=== PATIENT | female | born 1980 | race Caucasian/White ===

== ENCOUNTER 2020-03-19 14:38 | Outpatient (REF) | payer OTHER, SELFPAY | END 2020-03-19 14:39 | disposition home or self-care (01) | LOC: HO.LAB 14:38 | PROVIDERS: Visit Provider Internal Medicine | DX: Z20.822 Contact with and (suspected) exposure to COVID-19 (principal) | CPT/HCPCS: 36415; C9803; U0003 ==

== ENCOUNTER 2020-03-25 15:42 | Outpatient (REF) | payer OTHER, SELFPAY | END 2020-03-25 15:43 | disposition home or self-care (01) | LOC: HO.LAB 15:42 | PROVIDERS: Visit Provider Internal Medicine | DX: Z20.822 Contact with and (suspected) exposure to COVID-19 (principal) | CPT/HCPCS: 36415; C9803; U0003 ==

== ENCOUNTER 2020-06-13 11:21 | Outpatient (REF) | payer OTHER, SELFPAY ==
[2020-06-13 12:43] LABS: COVID-19 Test Negative (Negative)
== END 2020-06-13 11:22 | disposition home or self-care (01) ==
LOC: HO.LAB 11:21
PROVIDERS: Visit Provider Internal Medicine
DX: Z20.822 Contact with and (suspected) exposure to COVID-19 (principal)
CPT/HCPCS: 36415; 87635; C9803

== ENCOUNTER 2020-08-01 05:10 | Emergency (ER) | payer OTHER, SELFPAY ==
--- NOTE | ~2020-08-01 | XR_ITS ---
EXAMINATION: XR CHEST CLINICAL INFORMATION: Cough and shortness of breath COMPARISON: 08/09/2019 TECHNIQUE: Frontal view of the chest was obtained. FINDINGS: The lungs are well expanded. There is no focal consolidation, edema, or effusion. No pneumothorax. The cardiomediastinal silhouette is within normal limits. No acute osseous abnormality. XR/XR chest 1V IMPRESSION: Clear lungs.
[2020-08-01 05:16] VITALS: BP 154/91; PULSE 98; RESP 20; TEMP 36.5; O2SAT 99; BMI 29.2
--- NOTE | 2020-08-01 05:50 | ED.ASTHMA ---
HPI - Asthma General Chief Complaint: Asthma Stated Complaint: Asthma Time Seen by Provider: 08/01/20 05:39 Source: patient Mode of arrival: ambulatory Limitations: no limitations History of Present Illness HPI Narrative: Patient comes emergency room complaining of shortness of breath for 1 week. Patient states she has been using her albuterol pump and nebulization treatments. Patient has been coughing, no fever chills, no chest pain. Patient states that she has been coughing so much that makes her vomit, otherwise no vomiting or diarrhea. MD complaint: shortness of breath and wheezing Related Data Previous Rx's Medication Instructions Recorded albuterol sulfate 2 puff INHALATION Q4-6H PRN #8.5 g 08/01/20 benzonatate [Tessalon Perles] 100 mg PO TID PRN #14 cap 08/01/20 prednisone 50 mg PO DAILY #4 tab 08/01/20 Allergies Allergy/AdvReac Type Severity Reaction Status Date / Time banana [BANANA] Allergy Unknown ANAPHYLAXIS Verified 08/01/20 05:15 kiwi [KIWI] Allergy Unknown ANAPHYLAXIS Verified 08/01/20 05:15 Review of Systems Review of Systems: Constitutional : No Weight loss, No Fever, No Chills, No Night Sweats, No Fatigue, No Malaise ENT/Mouth : No Hearing loss, No Ear Pain, No Nasal Congestion, No Sinus Pain, No Hoarseness, No sore throat, No Rhinorrhea, No Swallowing Difficulty Eyes: No Eye Pain, No Swelling, No Redness, No Foreign Body, No Discharge, No Vision Changes Cardiovascular : No Chest Pain, No SOB, No Dyspnea on Exertion, No Orthopnea, No Edema, No Palpitations Respiratory : Complaining of dry cough, no sputum, wheezing No Smoke Exposure, Gastrointestinal : No Nausea, No Vomiting, No Diarrhea, No Constipation, No abdominal Pain, No Hematochezia, No Melena Genitourinary : no irregular bleeding, No Dysuria, No Urinary Frequency, No Hematuria, No Urinary Incontinence, No Urgency, No Flank Pain, No Urinary Flow Changes, No Hesitancy Musculoskeletal : No joint pain, No Myalgias, No Joint Swelling Skin : No Skin Lesions, No rash Neuro : No Weakness, No Numbness, No Paresthesias, No Loss of Consciousness, No Dizziness, No Headache Psych : No Anxiety/Panic, No Depression, No SI/HI/AH/VH, No Social Issues, Heme/Lymph: No Bruising, No Bleeding,No Lymphadenopathy Endocrine : No Polyuria, No Polydipsia, No Temperature Intolerance [facility] Past Medical History Medical History (Updated 08/01/20 @ 06:35 by Anita Walter MD) Asthma Social History Social History Advance Directives: No Advance Directives Information Provided: No Patient : No Physical Exam Vital Signs: Vital Signs: Last Vital Signs Temp 97.7 F 08/01/20 05:16 Pulse 75 08/01/20 06:00 Resp 16 08/01/20 06:00 BP 121/72 08/01/20 06:00 Pulse Ox 98 08/01/20 06:00 Body Mass Index 29.2 Appearance: Alert. Oriented X3. No acute distress. Eyes: Pupils equal, round and reactive to light. ENT: Pharynx normal. Neck: Normal inspection. Neck supple. No lymph nodes noted. No crepitus CVS: Normal heart rate and rhythm. Pulses normal. Normal S1 and S2 Respiratory: No respiratory distress. Breath sounds normal. No Wheezing. No rales Abdomen: Soft and nontender. No rigidity. No distention. good BS x4 Skin: Skin warm and dry. Normal skin color. Normal skin turgor. Extremities: No lower extremity edema. No lower extremity edema. No Lacerations. No Rash Neuro: Oriented X 3. No motor deficit. No sensory deficit. Moving all extermities. No slurred speech. Course Course Course Narrative: At this time, patient is not wheezing. Patient states that she feels tight. Albuterol nebulization treatment given, and oral prednisone. Chest x-ray and COVID test done Patient states she feels better, no longer having chest tightness. Oxygen saturation 100% on room air. MDM - Asthma Imaging Data Chest x-ray: Radiologist's impression: The lungs are well expanded. There is no focal consolidation, edema, or effusion. No pneumothorax. The cardiomediastinal silhouette is within normal limits. No acute osseous abnormality. XR/XR chest 1V IMPRESSION: Clear lungs. Discharge Plan Discharge Clinical Impression: Asthma Patient Disposition: Home, Self-Care Instructions: Asthma (ED) Additional Instructions: Please follow-up with your primary care physician tomorrow. If you have any worsening or new symptoms, please return to the emergency room or call 911 Prescriptions: New prednisone 50 mg tablet 50 mg PO DAILY Qty: 4 RF: 0 benzonatate [Tessalon Perles] 100 mg capsule 100 mg PO TID PRN (Reason: cough) Qty: 14 RF: 0 albuterol sulfate 90 mcg/actuation HFA aerosol inhaler 2 puff inhalation Q4-6H PRN (Reason: shortness of breath or wheezing) Qty: 8.5 RF: 0
[2020-08-01 06:00] VITALS: BP 121/72; PULSE 75; RESP 16; O2SAT 98
[2020-08-01] MEDS: predniSONE 20 MG TABLET 60 MG PO (06:01)
[2020-08-01 06:37] LABS: COVID-19 Test Negative (Negative)
[2020-08-01] MEDS: Albuterol Sulfate (0.083%) 2.5 MG/3 ML VIAL.NEB 5 MG INHALE (06:44)
[2020-08-01 06:45] VITALS: PULSE 68; O2SAT 100
[2020-08-01] MEDS: Benzonatate 100 MG CAPSULE PO (06:50)
== END 2020-08-01 07:31 | disposition home or self-care (01) ==
PROVIDERS: Emergency Provider Emergency Medicine
DX: J45.909 Unspecified asthma, uncomplicated (principal); R06.02 Shortness of breath; Z79.899 Other long term (current) drug therapy
CPT/HCPCS: 36415; 71045; 87635; 94640; 94644; 99283

== ENCOUNTER 2020-11-12 09:07 | Outpatient (REF) | payer OTHER, SELFPAY | END 2020-11-12 09:08 | disposition home or self-care (01) | LOC: HO.LAB 09:07 | PROVIDERS: PCP Family Medicine; Visit Provider Internal Medicine | DX: Z20.822 Contact with and (suspected) exposure to COVID-19 (principal) | CPT/HCPCS: C9803; U0003; U0005 ==

== ENCOUNTER 2020-11-27 09:40 | Outpatient (REF) | payer OTHER, SELFPAY ==
--- NOTE | 2020-11-27 | PFT_ITS ---
Forced vital capacity and FEV1 are both slightly decreased. [id number] normal. MVV is moderately decreased. Post bronchodilator therapy, there is no change. Total lung capacity is slightly decreased. Residual volume normal. Diffusion capacity slightly decreased. O2 saturation at rest is normal. CONCLUSION: Mild restrictive pulmonary disorder. No significant obstructive airway disorder. MD LYDIA North/ALEX / [phone]
== END 2020-11-27 09:41 | disposition home or self-care (01) ==
LOC: HO.RESP 09:40
PROVIDERS: PCP Family Medicine; Visit Provider Family Medicine
DX: J45.909 Unspecified asthma, uncomplicated (principal)
CPT/HCPCS: 94060; 94727; 94729